=== PATIENT | female | born 1970 | race African-American/Black ===

== ENCOUNTER → 2019-01-03 | Outpatient (CLI) | payer OTHER ==
[~2019-01-03] MED LIST: BRINTELLIX20 MG PO; BUPROPION HCL150 M1 PO; CIPRO500 MG PO; HYDROCODONE-APA1 TA1 PO; LATUDA80 MG PO; LISINOPRIL-HCT1 EAC2 PO; OMEPRAZOLE 20 M20 M1 PO; VISTARIL 25 MG25 M1 PO
== END ==
LOC: MRI 10:41
DX: M50.11 Cervical disc disorder with radiculopathy, high cervical region (principal); M48.02 Spinal stenosis, cervical region

== ENCOUNTER 2019-11-12 10:34 | Inpatient (IN) | payer OTHER ==
[~2019-11-12] VITALS: Ht 162.6 cm; Wt 82.0 kg
[2019-11-12 10:34] VITALS: BP 186/97
[~2019-11-12 10:34] MED LIST changes: -HYDROCODONE-APA1 TA1 PO; +NORCO 5-325 TA1 EAC2 PO
[2019-11-12 10:54] LABS: URINE BILIRUBIN NEGATIVE (Negative); URINE BLOOD TRACE (Negative); URINE CLARITY CLEAR; URINE COLOR YELLOW; URINE GLUCOSE-RANDOM* NEGATIVE (Negative); URINE KETONES NEGATIVE (Negative); URINE LEUKOCYTES-REFLEX NEGATIVE (Negative); URINE NITRITE-REFLEX NEGATIVE (Negative); URINE PROTEIN (DIPSTICK) NEGATIVE (Negative); URINE UROBILINOGEN 0.2 E.U./dl (0.2-1.0)
[2019-11-12] MEDS ORDERED: LORATIDINE 10 M10 M1 PO (11:17)
[2019-11-12] MEDS ORDERED: ZANTAC 150MG T150 M1 PO (11:18)
[2019-11-12] MEDS ORDERED: SUPER THERAVIT1 EACH PO (11:18)
[2019-11-12 11:40] LABS: BE(vivo) 2.3 mmol/L (-2 to +3); HCO3 26.7 mmol/L (22.0-26.0); PCO2 VENOUS 40.8 mmHg (41.0-51.0); PO2 VENOUS 30.8 mmHg (35.0-45.0)
[2019-11-12 11:47] LABS: ABSOLUTE NEUTROPHILS 12.4 thou/uL (1.4-8.2); BASOPHILS 0.7 % (0.0-2.0); EOSINOPHILS 0.1 % (0.0-3.0); HEMATOCRIT 34.6 % (37.0-47.0); HEMOGLOBIN 11.3 gm/dL (12.0-15.0); MCH 31.7 pg (26.0-34.0); MCHC 32.7 g/dL (28.0-37.0); MCV 96.9 fL (80.0-100.0); PLATELET COUNT 266 thou/uL (150-400); POLYS 84.2 % (36.0-66.0); RBC 3.57 mil/uL (4.20-5.00); RDW 15.3 % (10.5-14.5); WBC 14.8 thou/uL (4.0-11.0)
[2019-11-12 11:49] LABS: ANION GAP 8 mmol/L (7-16); BUN 14 mg/dL (7-18); CALCIUM 10.1 mg/dL (8.5-10.1); CHLORIDE 106 mmol/L (98-107); CO2 29 mmol/L (21-32); CREATININE 0.9 mg/dL (0.6-1.0); GLUCOSE 108 mg/dL (74-106); POTASSIUM 3.4 mmol/L (3.5-5.1); SODIUM 143 mmol/L (136-145)
[2019-11-12 11:54] LABS: APTT 25.2 Seconds (24.5-32.8); PROTIME 10.2 Seconds (9.3-11.4)
[2019-11-12 11:58] LABS: ALBUMIN 3.6 g/dL (3.4-5.0); MAGNESIUM 1.8 mg/dL (1.8-2.4); SGOT 28 U/L (15-37); SGPT 24 U/L (30-65); TOTAL BILIRUBIN 0.5 mg/dL (<0.1-1.0); TROPONIN-I <0.06 ng/mL (<0.06)
[2019-11-12 13:43] VITALS: BP 158/65
[2019-11-12 14:05] VITALS: BP 148/65
[2019-11-12 14:33] VITALS: BP 144/78
[2019-11-12 17:51] LABS: ALBUMIN 3.4 g/dL (3.4-5.0); TOTAL PROTEIN 7.5 g/dL (6.4-8.2)
--- NOTE | 2019-11-12 18:25 | NUR ---
pt admitted from ER for SOB , PT has IV abx for abnormal chest x-ray, pt is continuing o2 1L/MIN/NC, and lasix 40mg iv , pt's vs are stable , pt has sob with acitivities, pt has pain medication for back pain about 1800pm, pt is relaxing now.
[2019-11-12 20:20] VITALS: BP 122/69
[2019-11-13 03:30] LABS: HEMATOCRIT 29.1 % (37.0-47.0); HEMOGLOBIN 9.6 gm/dL (12.0-15.0); MCH 31.8 pg (26.0-34.0); MCV 96.5 fL (80.0-100.0); RBC 3.02 mil/uL (4.20-5.00); WBC 7.5 thou/uL (4.0-11.0)
[2019-11-13 03:37] LABS: CALCIUM 9.1 mg/dL (8.5-10.1); CREATININE 0.9 mg/dL (0.6-1.0); MAGNESIUM 1.7 mg/dL (1.8-2.4)
[2019-11-13 04:32] LABS: TSH 1.959 uIU/mL (0.358-3.740)
[2019-11-13 05:15] VITALS: BP 163/90
[2019-11-13 08:05] VITALS: BP 156/95
--- NOTE | 2019-11-13 11:23 | EKG ---
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
[2019-11-13 15:43] VITALS: BP 114/67
--- NOTE | 2019-11-13 18:37 | NUR ---
pt is A&OX3, PT is off o2 today, pt's vs and o2sat are stable, pt has some sob with acitivites, pt has CTA today , no PE,but pt starts IV abx for L pneumonia, pt denies pain and n/v at this time.
[2019-11-13 19:42] VITALS: BP 116/82
[2019-11-14 03:59] VITALS: BP 139/89
--- NOTE | 2019-11-14 05:25 | NUR ---
AQUIRED CARE OF THIS PATIENT AT 191. PATIENT ALERT AND ORIENTED X4. UP WITH SBA TO BSC. IV PATENT IN RAC WITH FLUIDS INFUSING, PIV IN LAC WELL. DENIES PAIN. SLEPT OFF AND ON DURING SHIFT.
[2019-11-14 05:30] LABS: HEMATOCRIT 32.3 % (37.0-47.0); HEMOGLOBIN 10.6 gm/dL (12.0-15.0); MCH 31.6 pg (26.0-34.0); MCHC 32.8 g/dL (28.0-37.0); MCV 96.3 fL (80.0-100.0); RBC 3.35 mil/uL (4.20-5.00); RDW 14.9 % (10.5-14.5); WBC 6.7 thou/uL (4.0-11.0)
[2019-11-14 05:39] LABS: CALCIUM 9.6 mg/dL (8.5-10.1); CREATININE 0.9 mg/dL (0.6-1.0); MAGNESIUM 2.1 mg/dL (1.8-2.4); POTASSIUM 3.8 mmol/L (3.5-5.1)
[2019-11-14 07:20] VITALS: BP 141/86
--- NOTE | 2019-11-14 10:40 | 2DMMODE ---
[place] [address] [facility] [place] [address] 2 D/M-MODE ECHOCARDIOGRAM Name: SVITLANA AMAYA Room #: 360-P [facility] IN .R.#: [id number] Admission: 11/12/19 Attend Phys: Lane Mcgraw, Discharge: Date of : 66 Report #: [id number] THIS REPORT FOR: //name// APPROVED REPORT Study performed: 11/14/2019 09:56:08 EXAM: Comprehensive 2D, Doppler, and color-flow Echocardiogram Patient Location: Echo lab Room #: 360 Status: routine BSA: 1.83 HR: 76 bpm BP: 141/80 mmHg Other Information Study Quality: Good Indications CHF, elevated BNP, chest pressure, SOB. Hx: HTN, tobacco abuse. 2D Dimensions RVDd: 27.19 mm IVSd: 12.04 (7-11mm) LVOT Diam: 22.10 (18-24mm) LVDd: 50.96 mm PWd: 12.45 (7-11mm) Ascending Ao: 34.84 (22-36mm) LVDs: 42.54 (25-40mm) Aortic Root: 33.78 mm Volumes Left Atrial Volume (Systole) Single Plane 4CH: 79.65 mL Single Plane 2CH: 74.14 mL LA ESV Index: 46.00 mL/m2 Aortic Valve AoV Peak Miguelangel.: 1.27 m/s AO Peak Gr.: 6.40 mmHg LVOT Max P.43 mmHg LVOT Max V: 0.93 m/s JULIANA Vmax: 2.81 cm2 Mitral Valve E/A Ratio: 0.8 MV Decel. Time: 150.36 ms MV E Max Miguelangel.: 0.84 m/s MV A Miguelangel.: 0.99 m/s [facility] [place] [address] 2 D/M-MODE ECHOCARDIOGRAM Name: SVITLANA AMAYA Room #: [address] [place] [address] IN M.R.#: [id number] Admission: 11/12/19 Attend Phys: Lane Mcgraw, Discharge: Date of : 66 Report #: [id number] PHT: 43.60 ms IVRT: 89.97 ms Pulmonary Valve PV Peak Miguelangel.: 0.73 m/s PV Peak Gr.: 2.13 mmHg Pulmonary Vein P Vein S: 0.61 m/s P Vein A: 0.33 m/s P Vein D: 0.44 m/s P Vein A Dur.: 93.4 msec P Vein S/D Ratio: 1.39 Tricuspid Valve TR Peak Miguelangel.: 2.11 m/s RAP Estimate: 5.00 mmHg TR Peak Gr.: 18.00 mmHg PA Pressure: 23.00 mmHg Left Ventricle The left ventricle is normal size. Mild Global hypokinesis Mild concentric left ventricular hypertrophy. Left ventricular systolic function is mild to moderately decreased. LVEF is 40-45%. Mild diastolic dysfunction is present (impaired relaxation pattern). Right Ventricle The right ventricle is normal size. The right ventricular systolic function is normal. Atria Left atrium is moderately dilated. The right atrium size is normal. Aortic Valve The aortic valve is normal in structure. No aortic regurgitation is present. There is no aortic valvular stenosis. Mitral Valve The mitral valve is normal in structure. Severe mitral regurgitation. Tricuspid Valve The tricuspid valve is normal in structure. Trace tricuspid regurgitation. Estimated PAP is 20-25mmHg. Pulmonic Valve The pulmonary valve is normal in structure. There is no pulmonic valvular regurgitation. [facility] [address] [place] [address] 2 D/M-MODE ECHOCARDIOGRAM Name: SVITLANA AMAYA Room #: 360-P [facility] IN .R.#: [id number] Admission: 11/12/19 Attend Phys: Lane Mcgraw, Discharge: Date of : 66 Report #: [id number] Great Vessels The aortic root is normal in size. The ascending aorta is normal in size. IVC is normal in size and collapses >50% with inspiration. Pericardium There is no pericardial effusion. <Conclusion> The left ventricle is normal size. LVEF is 40-45%. Mild Global hypokinesis Left atrium is moderately dilated. The aortic valve is normal in structure. The mitral valve is normal in structure. Severe mitral regurgitation. The tricuspid valve is normal in structure. Trace tricuspid regurgitation. Estimated PAP is 20-25mmHg. The pulmonary valve is normal in structure. There is no pericardial effusion. <ELECTRONICALLY SIGNED> By: Juan Mendes MD 11/14/19 1039 1039 1039 Juan Mendes MD /INF
--- NOTE | 2019-11-14 11:32 | NUR ---
PT BACK FROM ECHO, DENIES ANY PAIN. Call light in reach. will continue to monitor.
[2019-11-14 15:27] VITALS: BP 115/68
[2019-11-14] MEDS ORDERED: ZANAFLEX4 M2 PO (16:21)
[2019-11-14] MEDS ORDERED: PRILOSEC OTC20 MG PO (16:21)
[2019-11-14] MEDS ORDERED: LEXAPRO20 MG PO (16:23)
--- NOTE | 2019-11-14 16:58 | NUR ---
INITIAL ASSESSMENT: Received high risk nursing referral. SW reviewed chart and spoke with nursing and attending physician. Pt was admitted from home due to hypoxia/CAP. Pt had echo today. Pt currently on IV lasix and IV abx. SW met with pt at bedside. Introduced role of SW. Pt is alert/orientated x 4. Pt reports she lives at home alone. Prior to admission, pt was independent with ADLS. Pt does have a cane and walker at home. Pt's PCP is Dr. Nuria Shook. Plan is for pt to discharge home when medically stable. SW is following to assist as needed with discharge planning.
[2019-11-14 19:30] VITALS: BP 115/59
[2019-11-15 04:05] VITALS: BP 130/64
[2019-11-15 05:12] LABS: CALCIUM 8.9 mg/dL (8.5-10.1); MAGNESIUM 1.9 mg/dL (1.8-2.4); POTASSIUM 3.6 mmol/L (3.5-5.1)
[2019-11-15 05:14] LABS: HEMATOCRIT 31.3 % (37.0-47.0); HEMOGLOBIN 10.4 gm/dL (12.0-15.0); MCH 31.9 pg (26.0-34.0); MCHC 33.4 g/dL (28.0-37.0); MCV 95.6 fL (80.0-100.0); RBC 3.27 mil/uL (4.20-5.00); RDW 14.6 % (10.5-14.5); WBC 6.3 thou/uL (4.0-11.0)
--- NOTE | 2019-11-15 07:49 | NUR ---
0725 pt transported to scientific laboratory supervisor via scientific laboratory supervisor nurse.
--- NOTE | 2019-11-15 09:34 | NUR ---
report given to akanksha on . P t will be in room 219. All pt belonging sent to [facility].
[2019-11-15 09:41] VITALS: BP 107/78
--- NOTE | 2019-11-15 10:38 | NUR ---
PT ARRIVED TO UNIT AT APPROX 0930 BY SET ILLUSTRATOR STAFF. PT ALERT AND ORIENTED. VSS. DENIES PAIN. RIGHT GROIN SITE CDI, NO HEMATOMA. PT MONITORED ON FREQUENT VITAL SIGNS. INSTRUCTED TO NOT MOVE RIGHT LEG, AND TO HOLD PRESSURE WHEN COUGHING, SNEEZING, LAUGHING. PT COMMUNICATES UNDERSTANDING. PT DENYING NEEDS AT THIS TIME. CONTINUING TO MONITOR.
--- NOTE | 2019-11-15 13:24 | CATHLAB ---
[facility] [address] [place] [address] INVASIVE PROCEDURE REPORT Name: SVITLANA AMAYA Room #: 219-P [facility] IN ..#: [id number] Admission: 11/12/19 Attend Phys: Lane Mcgraw, Discharge: Date of : 66 Report #: [id number] THIS REPORT FOR: //name// APPROVED REPORT Study performed: 11/15/2019 07:37:20 Patient Details Patient Status: In-Patient Room #: The patient is a 49 year-old female Event Personnel Gt Mcgowan Copy Messenger, Lois Dasilva RN RN, Marlon Moore RTJosé Luis Huston David Monitor Procedures Performed Left Heart Cath w/or w/o Coronaries [id number] [facility] Indication CHF Current Status: , Dyspnea, Cardiomyopathy, Chest pain Risk Factors HypercholesterolemiaPhysical Activity, Hypertension, Tobacco History () Procedure Narrative The Right Groin^ was infiltrated with 1% Lidocaine subcutaneous anesthesia. A sheath was inserted into the RFA^. Coronary angiography was performed using coronary diagnostic catheters. The patient tolerated the procedure well and there were no complications associated with the procedure. Intraoperative Conscious Sedation Fentanyl mcg Versed mg Fluoro Time: 1.47 minutes Dose: DAP 3070.00 cGycm2 Contrast Type and Amount: Omnipaque 100 ml Coronary Angiography The patient's coronary anatomy is co- dominant. Diagnostic Cath Left Main The Left main artery is a large-caliber vessel, patent with no flow-limiting lesions. [facility] [address] [place] [address] INVASIVE PROCEDURE REPORT Name: GORAN AMAYALANDA Room #: 219-P ADM IN M.R.#: [id number] Admission: 11/12/19 Attend Phys: Lane Mcgraw, Discharge: Date of : 66 Report #: [id number] LAD The LAD is a moderate size caliber vessel, traversing the anterior wall and terminating at the apex. This vessel is patent with no flow-limiting lesions. Diagonal 1 This is a small to moderate size caliber vessel, patent with no flow-limiting lesions. Circumflex The left circumflex artery is a moderate size caliber vessel, codominant. This vessel is patent with no flow-limiting lesions. OM1 This is a moderate size caliber vessel, with mild disease at the proximal segment, 20%. OM2 This is a small to moderate size caliber vessel, patent with no flow-limiting lesions. OM3 This is a small to moderate size caliber vessel, with a mild stenosis in the proximal segment. Right Coronary This is a moderate size caliber vessel, with mild disease in the proximal segment, 20%. R PDA This is a small to moderate size caliber vessel, patent with no flow-limiting lesions. Left Ventriculography The left ventricle is mildly dilated in size with decreased contractility. The left ventricular ejection fraction is estimated to be 35-40%. Hemodynamics The aortic pressure is 141/70 mmHg with a mean of 99 mmHg. The left ventricular pressure is 156/6 mmHg with a mean of mmHg. The left ventricular end diastolic pressure is 22 mmHg. There was no gradient across the aortic valve upon pullback. Pullback from the left ventricle to the aorta revealed no gradient across the aortic valve. Conclusion 1. There is mild, nonobstructive disease in the RCA and OM vessels. 2. Nonischemic cardiomyopathy. 3. Recommend aggressive risk factor management and guideline directed medical therapy. <ELECTRONICALLY SIGNED> By: Gt Mcgowan MD 11/15/19 1323 1323 1323 Gt Mcgowan MD /INF
[2019-11-15 17:00] VITALS: BP 111/65
--- NOTE | 2019-11-15 18:03 | NUR ---
PT CONTINUES TO BE ALERT AND ORIENTED. VSS. POST CATH VITALS SHEET IN CHART. RIGHT GROIN SITE REMAINS CDI NO HEMATOMA. PT OFF BEDREST, ABLE TO AMBULATE IN ROOM WITHOUT ISSUES. PT C/O PAIN IN BACK AND RIGHT LEG. MANAGED WITH IV PAIN MEDS. FAMILY MEMBER AT BEDSIDE. DENIES NEEDS AT THIS TIME. WILL CONT TO ASSESS PAIN/MONITOR AND FOLLOW POC
[2019-11-15 20:55] VITALS: BP 110/67
[2019-11-16] VITALS (7 sets, daily range): BP systolic 102–128; BP diastolic 61–78
--- NOTE | 2019-11-16 04:57 | NUR ---
PT ALERT AND ORIENTED. FAMILY PRESENT AT BEGINNING OF SHIFT. HAD A CARDIAC CATH YESTERDAY. R GROIN SITE C/D/I. VSS. NO C/O CHEST PAIN, SOB OR N/V/D. REPORTS BACK PAIN AND LE , MORPHINE 2MG GIVEN NEEDED. PT WOULD LIKE TO HAVE AN INHALER PRESCRIPTION UPON DISCHARGE. NO FURTHER CONCERNS AT THIS TIME. WILL CONTINUE TO FOLLOW POC.
[2019-11-16 05:57] LABS: HEMATOCRIT 31.2 % (37.0-47.0); HEMOGLOBIN 10.3 gm/dL (12.0-15.0); MCH 31.8 pg (26.0-34.0); MCHC 33.1 g/dL (28.0-37.0); RBC 3.25 mil/uL (4.20-5.00); RDW 14.4 % (10.5-14.5); WBC 5.6 thou/uL (4.0-11.0)
[2019-11-16 06:12] LABS: CALCIUM 8.8 mg/dL (8.5-10.1); CREATININE 1.1 mg/dL (0.6-1.0); MAGNESIUM 1.9 mg/dL (1.8-2.4); POTASSIUM 3.3 mmol/L (3.5-5.1)
--- NOTE | 2019-11-16 18:42 | NUR ---
ASSUMED CARE OF PT AT SHIFT CHANGE. ASSESSMENTS CHARTED. MEDS GIVEN PER MAR. VSS. PT A&OX4. C/O PAIN TREATED WITH PO MEDS WITH PARTIAL RELIEF. PLAN TO DISCHARGE TOMORROW IF STABLE ON ADJUSTED MEDS. WILL CONTINUE TO MONITOR AND FOLLOW POC.
[2019-11-17 04:23] VITALS: BP 119/59
--- NOTE | 2019-11-17 04:51 | NUR ---
PT SLEPT THROUGH THE NIGHT. STILL C/O BACK AND LE PAIN. VSS. MORPHINE X 1 GIVEN. DENIES CHEST PAIN. N/V/D. POSTOP DAY 2 AFTER CARDIAC CATH. DRESS CHNAGED. SITE C/D/I. NO BLEEDING. PT ANTICIPATE TO DC HOME WITH SOME SORT OF PAIN MEDICATIONS AND INHALER. NO FURTHER CONCERNS. WILL CONTINUE TO MONITOR.
[2019-11-17 05:28] LABS: HEMATOCRIT 33.8 % (37.0-47.0); HEMOGLOBIN 11.1 gm/dL (12.0-15.0); MCH 31.4 pg (26.0-34.0); MCHC 32.8 g/dL (28.0-37.0); MCV 95.8 fL (80.0-100.0); RBC 3.53 mil/uL (4.20-5.00); RDW 14.5 % (10.5-14.5); WBC 5.3 thou/uL (4.0-11.0)
[2019-11-17 05:53] LABS: CALCIUM 9.7 mg/dL (8.5-10.1); CREATININE 1.1 mg/dL (0.6-1.0)
[2019-11-17 06:11] LABS: POTASSIUM 4.3 mmol/L (3.5-5.1)
[2019-11-17 08:00] VITALS: BP 125/70
[2019-11-17] MEDS ORDERED: CARVEDILOL12.5 MG PO (10:33)
[2019-11-17] MEDS ORDERED: LISINOPRIL20 MG PO (10:34)
[2019-11-17] MEDS ORDERED: TORSEMIDE20 MG PO (10:34)
[2019-11-17] MEDS ORDERED: MUCINEX600 MG PO (10:35)
[2019-11-17] MEDS ORDERED: LEVAQUIN 750 M750 MG PO (10:35)
[2019-11-17] MEDS ORDERED: KLOR-CON 1010 MEQ PO (10:36)
[2019-11-17] MEDS ORDERED: PROAIR HFA8.5 GM INH (10:36)
[2019-11-17 10:42] VITALS: BP 125/70
--- NOTE | 2019-11-17 13:11 | NUR ---
ASSUMED CARE OF PT AT SHIFT CHANGE. ASSESSMENTS CHARTED. MEDS GIVEN PER DEC. VSS. C/O PAIN TREATED WITH IV MEDS WITH PARTIAL RELIEF. DISCHARGE ORDERS AND INSTRUCTIONS AND COMPLETE. PT LEFT WITH ALL BELONGINGS VIA VOLUNTEER WHEELCHAIR TO OWN CAR.
--- NOTE | 2019-11-17 17:32 | HC ---
[facility] [place] [address] CONSULTATION Name: SVITLANA AMAYA Room #: 219-P [facility] IN M.R.#: [id number] Admission: 11/12/19 Attend Phys: Lane Mcgraw MD Discharge: 11/17/19 Date of : 66 Report #: [id number] THIS REPORT FOR: //name// CC: HELDER Mcgraw Physician staff CARDIOLOGY CONSULTATION REASON FOR CONSULTATION: Congestive heart failure. HISTORY OF PRESENT ILLNESS: The patient is a 49-year-old female with a history of hypertension and tobacco abuse, who has been having increased exertional dyspnea for the past several days. She has also been noticing some PND and orthopnea at nighttime. She has also had some episodes of chest heaviness which radiates to her left shoulder blade, which can occur at rest or with activity. She denies any presyncope or syncope. REVIEW OF SYSTEMS: Twelve-point review of systems was performed and was negative other than what is already mentioned above. PAST MEDICAL HISTORY: 1. Hypertension. 2. Bipolar. SOCIAL HISTORY: She does smoke, used to use alcohol. ALLERGIES: None. MEDICATIONS: Have been reviewed. PHYSICAL EXAMINATION: VITAL SIGNS: Reviewed. GENERAL: In no acute distress. HEENT: Oropharynx clear. NECK: Supple. No thyromegaly. She has elevated JVD. HEART: Regular rate and rhythm with normal S1, S2. Positive S3. LUNGS: Some expiratory crackles noted. ABDOMEN: Soft, nontender, nondistended. No hepatosplenomegaly. EXTREMITIES: No clubbing, cyanosis or edema. NEUROLOGIC: Cranial nerves 2-12 are intact. LABORATORY DATA: White count 14, hemoglobin 11, platelets 266. INR 1. Chemistry; sodium 143, potassium 4.3, BUN 14, creatinine 0.9. Troponin is normal. Her proBNP is 9284. IMAGING: Chest x-ray shows enlarged cardiac silhouette and pulmonary edema. [facility] [address] [place] [address] CONSULTATION Name: SVITLANA AMAYA Room #: 219-P [facility] IN [facility].#: [id number] Admission: 11/12/19 Attend Phys: Lane Mcgraw MD Discharge: 11/17/19 Date of : 66 Report #: [id number] Her 12-lead EKG shows normal sinus rhythm with no ischemic changes. ASSESSMENT AND PLAN: Acute congestive heart failure, which may be diastolic versus systolic. We will obtain an echocardiogram tomorrow or Thursday. Depending on these findings, we will talk about stress testing versus cardiac catheterization. We will continue with IV diuretics. We will continue to optimize her medications and continue with lisinopril, and once she is diuresed we can add some beta blockers starting tomorrow. We will follow. <ELECTRONICALLY SIGNED> By: Facundo Ramirez MD 11/17/19 1732 1613 0149 MD bev Naranjo
== END 2019-11-17 12:29 | disposition home or self-care (01) | DRG 286 ==
LOC: ER 10:34 → EROBS 12:27 → 3W 12:27 → 2N 11-15 07:10 → ENTRNSPT 11-17 12:07 → EDTRNSPTSTS 11-17 12:10 → 2N 11-17 12:29
PROVIDERS: Emergency Medicine; Hospitalist; Nurse Practitioner Adult Health; ADMIT Internal Medicine
PROC: B2111ZZ Fluoroscopy of Multiple Coronary Arteries using Low Osmolar Contrast (ICD-10-PCS; principal; 2019-11-15)
PROC: 4A023N7 Measurement of Cardiac Sampling and Pressure, Left Heart, Percutaneous Approach (ICD-10-PCS; principal; 2019-11-15)
PROC: B2151ZZ Fluoroscopy of Left Heart using Low Osmolar Contrast (ICD-10-PCS; principal; 2019-11-15)
DX: I11.0 Hypertensive heart disease with heart failure (principal); J18.9 Pneumonia, unspecified organism; I50.23 Acute on chronic systolic (congestive) heart failure; I42.9 Cardiomyopathy, unspecified; R00.0 Tachycardia, unspecified; F31.9 Bipolar disorder, unspecified; E87.6 Hypokalemia; I34.0 Nonrheumatic mitral (valve) insufficiency; Z71.6 Tobacco abuse counseling; Z87.891 Personal history of nicotine dependence
CPT/HCPCS: 10081; 10879

== ENCOUNTER → 2019-12-12 | Outpatient (CLI) | payer OTHER ==
[~2019-12-12] MED LIST changes: +CARVEDILOL12.5 MG PO; +KLOR-CON 1010 MEQ PO; +LEVAQUIN 750 M750 MG PO; +LEXAPRO20 MG PO; +LISINOPRIL20 MG PO; +LORATIDINE 10 M10 M1 PO; +MUCINEX600 MG PO; +PRILOSEC OTC20 MG PO; +PROAIR HFA8.5 GM INH; +SUPER THERAVIT1 EACH PO; +TORSEMIDE20 MG PO; +ZANAFLEX4 M2 PO; +ZANTAC 150MG T150 M1 PO
== END ==
LOC: SJCVC 15:39
DX: I11.0 Hypertensive heart disease with heart failure (principal); I50.9 Heart failure, unspecified; I42.9 Cardiomyopathy, unspecified; I25.10 Atherosclerotic heart disease of native coronary artery without angina pectoris; Z72.0 Tobacco use; Z79.899 Other long term (current) drug therapy

== ENCOUNTER → 2020-02-29 | Outpatient (CLI) | payer OTHER | LOC: SJCVCIMAG 10:01 | DX: I08.1 Rheumatic disorders of both mitral and tricuspid valves (principal); R94.31 Abnormal electrocardiogram [ECG] [EKG]; I42.9 Cardiomyopathy, unspecified; I11.0 Hypertensive heart disease with heart failure; I50.9 Heart failure, unspecified; I25.10 Atherosclerotic heart disease of native coronary artery without angina pectoris; D64.9 Anemia, unspecified; Z79.899 Other long term (current) drug therapy ==

== ENCOUNTER 2021-01-24 13:51 | Inpatient (IN) | payer OTHER ==
[~2021-01-24] VITALS: Ht 160 cm; Wt 74.4 kg
[2021-01-24 13:52] VITALS: BP 156/105
[2021-01-24 14:28] LABS: BASOPHILS 0.8 % (0.0-2.0); EOSINOPHILS 0.5 % (0.0-3.0); HEMATOCRIT 35.9 % (37.0-47.0); HEMOGLOBIN 11.9 gm/dL (12.0-15.0); LYMPHOCYTES 36.9 % (24.0-44.0); MCH 31.6 pg (26.0-34.0); MCHC 33.3 g/dL (28.0-37.0); MCV 94.8 fL (80.0-100.0); MONOCYTES 6.8 % (1.0-8.0); RBC 3.78 mil/uL (4.20-5.00); RDW 14.5 % (10.5-14.5); WBC 5.5 thou/uL (4.0-11.0)
[2021-01-24 14:35] LABS: ANION GAP 12 mmol/L (7-16); BUN 13 mg/dL (7-18); CALCIUM 9.1 mg/dL (8.5-10.1); CHLORIDE 103 mmol/L (98-107); CO2 28 mmol/L (21-32); CREATININE 0.9 mg/dL (0.6-1.0); GLUCOSE 102 mg/dL (74-106); POTASSIUM 3.3 mmol/L (3.5-5.1); SODIUM 143 mmol/L (136-145)
[2021-01-24 14:40] LABS: BE(vivo) -1.6 mmol/L (-2 to +3); HCO3 21.1 mmol/L (22.0-26.0); PCO2 29.9 mmHg (35.0-45.0); PO2 59.4 mmHg (80.0-100.0); pH 7.467 (7.360-7.450); sO2 92.6 % (92.0-98.0)
[2021-01-24 14:45] LABS: SGOT 42 U/L (15-37); SGPT 24 U/L (14-59); TOTAL BILIRUBIN 0.7 mg/dL (0.2-1.0); TROPONIN-I <0.06 ng/mL (<0.06)
[2021-01-24 14:48] LABS: LARGE PLATELETS RARE; PLATELET COUNT 174 thou/uL (150-400)
--- NOTE | 2021-01-24 16:38 | NUR ---
AFTER GIVING THE PT HER MEDS, SHE STATED WE DID NOT HAVE THE PAIN MEDS SHE WANTED, AND THAT SHE IS GOING TO GO [facility]S.
--- NOTE | 2021-01-24 17:59 | NUR ---
PT ORIENTED TO ROOM AND UNIT, BED LOW AND LOCKED, SIDE RAILS UPX3, CALL LIGHT IN REACH, TELE APPLIED, PT IN ENHANCED PRECAUTION IN PUI. WILL CONTINUE TO ASSESS.
[2021-01-24 18:30] VITALS: BP 167/101
--- NOTE | 2021-01-24 18:49 | NUR ---
CONTACT DR. SANTAMARIA TO INFORM PT REQUESTING NARCOTICS. INSTRUCTED ONLY TO GIVE TYLENOL.
[2021-01-24 20:40] VITALS: BP 146/92
[2021-01-25 03:40] VITALS: BP 142/82
[2021-01-25 04:34] LABS: ANION GAP 10 mmol/L (7-16); BUN 15 mg/dL (7-18); CHLORIDE 106 mmol/L (98-107); CO2 27 mmol/L (21-32); GLUCOSE 90 mg/dL (74-106); POTASSIUM 3.6 mmol/L (3.5-5.1); SODIUM 143 mmol/L (136-145); TROPONIN-I <0.06 ng/mL (<0.06)
[2021-01-25 04:35] LABS: HEMATOCRIT 31.7 % (37.0-47.0); HEMOGLOBIN 10.5 gm/dL (12.0-15.0); MCH 31.9 pg (26.0-34.0); MCHC 33.3 g/dL (28.0-37.0); MCV 95.9 fL (80.0-100.0); RBC 3.31 mil/uL (4.20-5.00); RDW 14.5 % (10.5-14.5); WBC 6.4 thou/uL (4.0-11.0)
[2021-01-25 04:41] LABS: CHOLESTEROL 158 mg/dL (<200); HDL CHOLESTEROL 79 mg/dL (>40); LDL CHOLESTEROL 57 mg/dL (<100); SERUM ASSESSMENT Clear; TRIGLYCERIDE 112 mg/dL (<150); VLDL 22 mg/dL (<40)
--- NOTE | 2021-01-25 07:15 | EKG ---
[place] [address] [facility] 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 : 1970 Requested By: Marco Antonio Michele Order Number: [id number] MD: Keith Corrales Measurements Intervals [place] Rate: 105 P: 44 [place]: 140 QRS: 14 QRSD: 94 T: 37 QT: 371 QTc: 491 Interpretive Statements Sinus tachycardia Ventricular premature complex Left atrial enlargement Probable left ventricular hypertrophy Borderline prolonged QT interval Compared to ECG 11/12/2019 10:58:47 Ventricular premature complex(es) now present Atrial abnormality now present Electronically Signed On 01-25-2021 7:15:08 CDT by Keith Corrales [email or web address] <ELECTRONICALLY SIGNED> By: Keith Corrales MD, [facility] 01/25/21 0715 1408 1408 Keith Corrales MD, [facility] /EPI
--- NOTE | 2021-01-25 07:42 | NUR ---
PT ASKED AND WAS GIVEN TYLENOL LAST NIGHT FOR GENERALIZED AND BACK PAIN. SHE STATED SHE NORMALLY GOES TO THE [facility]. DAY RN STATED THAT THE PHYSICIAN WOULD NOT PRESCRIBE ANY NARCOTIC PAIN MEDICATION AND THAT SHE COULD ONLY HAVE TYLENOL. PT INSTRUCTED TO SPEAK WITH PHYSICIAN IN REGARDS TO ANY EXPLANATION TO SUCH AN ORDER.
[2021-01-25 08:03] VITALS: BP 144/84
--- NOTE | 2021-01-25 12:17 | 2DMMODE ---
[facility] [place] [address] 2 D/M-MODE ECHOCARDIOGRAM Name: SVITLANA AMAYA Room #: 356-P ADM IN M.R.#: [id number] Admission: 01/24/21 Attend Phys: Dilan Reyna MD Discharge: Date of : 66 Report #: [id number] THIS REPORT FOR: cc: FAM - Family physician unknown FAM - Family physician unknown Gt Mcgowan MD ~ APPROVED REPORT Study performed: 01/25/2021 11:10:55 EXAM: Comprehensive 2D, Doppler, and color-flow Echocardiogram Patient Location: Bedside Room #: 356 Status: routine BSA: 1.77 HR: 73 bpm BP: 142/82 mmHg Rhythm: NSR Other Information Study Quality: Good Indications Short of breath, CHF. Hx: Mild CAD, cardiomyopathy, tobacco abuse. 2D Dimensions RVDd: 36.66 mm IVSd: 13.22 (7-11mm) LVOT Diam: 21.11 (18-24mm) LVDd: 49.92 mm PWd: 13.23 (7-11mm) LVDs: 43.09 (25-40mm) Aortic Root: 32.08 mm Volumes Left Atrial Volume (Systole) Single Plane 4CH: 74.17 mL Single Plane 2CH: 98.71 mL LA ESV Index: 51.00 mL/m2 Aortic Valve AoV Peak Miguelangel.: 1.46 m/s AO Peak Gr.: 8.58 mmHg LVOT Max P.32 mmHg LVOT Max V: 0.76 m/s JULIANA Vmax: 1.82 cm2 [facility] [address] [address] 2 D/M-MODE ECHOCARDIOGRAM Name: SVITLANA AMAYA Room #: 356-P [facility] IN M.R.#: [id number] Admission: 01/24/21 Attend Phys: Dilan Reyna MD Discharge: Date of : 66 Report #: [id number] Mitral Valve E/A Ratio: 1.6 MV Decel. Time: 182.92 ms MV E Max Miguelangel.: 1.20 m/s MV A Miguelangel.: 0.74 m/s MV PHT: 53.05 ms IVRT: 64.59 ms Pulmonary Valve PV Peak Miguelangel.: 0.89 m/s PV Peak Gr.: 3.16 mmHg Pulmonary Vein P Vein S: 0.37 m/s P Vein A: 0.24 m/s P Vein D: 0.34 m/s P Vein A Dur.: 120.0 msec P Vein S/D Ratio: 1.09 Tricuspid Valve RAP Estimate: 5.00 mmHg Left Ventricle The left ventricle is normal size. Mild concentric left ventricular hypertrophy. Left ventricular systolic function is mildly decreased. LVEF is 45%. Moderate diastolic dysfunction is present. Right Ventricle The right ventricle is normal size. The right ventricular systolic function is normal. Atria Left atrium is severely dilated. The right atrium size is normal. Aortic Valve The aortic valve is normal in structure. No aortic regurgitation is present. There is no aortic valvular stenosis. Mitral Valve The mitral valve is normal in structure. Moderate mitral annular calcification. Moderate to severe mitral regurgitation No evidence of mitral valve stenosis. Tricuspid Valve The tricuspid valve is normal in structure. There is no tricuspid valve regurgitation noted. Unable to assess PA pressure. [facility] [place] [address] 2 D/M-MODE ECHOCARDIOGRAM Name: SVITLANA AMAYA Room #: 356-[facility] IN .R.#: [id number] Admission: 01/24/21 Attend Phys: Dilan Reyna MD Discharge: Date of : 66 Report #: [id number] Pulmonic Valve The pulmonary valve is normal in structure. Trace pulmonic regurgitation. Great Vessels The aortic root is normal in size. Ascending aorta is not well visualized. IVC is normal in size and collapses >50% with inspiration. Pericardium There is no pericardial effusion. <Conclusion> The left ventricle is normal size. Mild concentric left ventricular hypertrophy. Left ventricular systolic function is mildly decreased. LVEF is 45%. Moderate diastolic dysfunction is present. The right ventricle is normal size. Left atrium is severely dilated. The aortic valve is normal in structure. Moderate mitral annular calcification. Moderate to severe mitral regurgitation <ELECTRONICALLY SIGNED> By: Gt Mcgowan MD 01/25/211215 15 15 Gt Mcgowan MD /INF
--- NOTE | 2021-01-25 13:46 | NUR ---
INITIAL ASSESSMENT: Received consult. SW reviewed chart and spoke with nursing and attending physician. Pt was admitted from home due to CHF/dyspnea. Pt placed in Enhanced Isolation to r/o COVID. Pt's test on 01/24 was negative. Isolation precautions discontinued. Pt is on IV abx and IV lasix. SW met with pt at bedside. Introduced role of SW. Pt is alert/orientated x 4. Pt reports she lives at home. Her dtr lives with her. Pt has a cane and walker to use if needed. No hx of services or post-acute placement. Pt's PCP is Dr. Mejia Lopez at [facility]. Pt is currently on O2 and was not on O2 prior to admission. If pt is not able to be weaned off O2, then she will need a rest/exercise oximetry to determine home O2 needs. Nursing to contact RT to assist with home O2 if needed over the weekend. Plan is for pt to discharge home when medically stable. SW is following to assist as needed with discharge planning.
[2021-01-25 16:23] VITALS: BP 120/60
[2021-01-25 20:09] VITALS: BP 130/71
[2021-01-26 04:18] VITALS: BP 125/65
[2021-01-26 05:25] LABS: CALCIUM 9.1 mg/dL (8.5-10.1)
[2021-01-26 07:41] VITALS: BP 110/61
--- NOTE | 2021-01-26 09:22 | NUR ---
PT MAKING SLOW PROGRESS TOWARDS GOALS. C/O GENERALIZED PAIN 04/11. X2 DOSES OF LORTAB GIVEN PER ORDERS. PT REPORTING "I THINK THE PAIN IS GETTING BETTER TODAY."
[2021-01-26 10:45] LABS: MAGNESIUM 1.7 mg/dL (1.8-2.4); PHOSPHORUS 4.5 mg/dL (2.5-4.9)
[2021-01-26 11:23] LABS: FOLIC ACID 7.8 ng/mL (8.6-58.9)
[2021-01-26 13:48] LABS: HEMATOCRIT 29.8 % (37.0-47.0); HEMOGLOBIN 9.6 gm/dL (12.0-15.0); MCH 31.7 pg (26.0-34.0); MCHC 32.3 g/dL (28.0-37.0); MCV 98.1 fL (80.0-100.0); RBC 3.04 mil/uL (4.20-5.00); RDW 14.8 % (10.5-14.5); WBC 4.4 thou/uL (4.0-11.0)
[2021-01-26 16:00] VITALS: BP 121/72
[2021-01-26 16:21] LABS: CALCIUM 9.4 mg/dL (8.5-10.1); CREATININE 1.1 mg/dL (0.6-1.0); MAGNESIUM 2.5 mg/dL (1.8-2.4)
[2021-01-26 16:22] LABS: POTASSIUM 4.1 mmol/L (3.5-5.1)
[2021-01-26 17:32] LABS: % SATURATION 14 % (20-39); IRON 41 ug/dL (50-170); TIBC 298 ug/dL (250-450)
[2021-01-26 17:33] LABS: ABSOLUTE RETIC COUNT 0.0476 10^6/uL; OBSERVED RETIC COUNT 1.55 % (0.6-2.6)
--- NOTE | 2021-01-26 19:46 | NUR ---
RN ASSUMED PT'S CARE AT 0700AM, PT IS A&OX3, PT IS OFF O2 TODAY, BUT PT STILL HAS COUGHING , PT'S VS ARE STBALE AT DAY SHIFT.
[2021-01-26 20:17] VITALS: BP 107/56
[2021-01-27 03:53] LABS: CALCIUM 9.5 mg/dL (8.5-10.1); CREATININE 1.1 mg/dL (0.6-1.0); MAGNESIUM 2.3 mg/dL (1.8-2.4); PHOSPHORUS 4.4 mg/dL (2.5-4.9); POTASSIUM 3.9 mmol/L (3.5-5.1)
[2021-01-27 04:28] LABS: ABSOLUTE NEUTROPHILS 2.3 thou/uL (1.4-8.2); BASOPHILS 1.2 % (0.0-2.0); HEMATOCRIT 32.9 % (37.0-47.0); HEMOGLOBIN 10.8 gm/dL (12.0-15.0); LYMPHOCYTES 35.4 % (24.0-44.0); MCH 31.6 pg (26.0-34.0); MCV 95.8 fL (80.0-100.0); MONOCYTES 10.2 % (1.0-8.0); PLATELET COUNT 172 thou/uL (150-400); POLYS 52.2 % (36.0-66.0); RBC 3.43 mil/uL (4.20-5.00); RDW 14.6 % (10.5-14.5); WBC 4.4 thou/uL (4.0-11.0)
[2021-01-27 04:41] VITALS: BP 124/71
--- NOTE | 2021-01-27 04:47 | NUR ---
Pt. stated she slept better last night. Medicated for pain with some relief. Up ad ruben in room with steady gait. Voiding per bathroonm. Stool sent for OB with pending results. Tolerating room air well with O2 sat up to 100%. Making progress towards care plan goals.
[2021-01-27 07:35] VITALS: BP 128/71
[2021-01-27] MEDS ORDERED: LISINOPRIL20 MG PO (13:13)
[2021-01-27] MEDS ORDERED: ASA81BEC PO (13:14)
[2021-01-27] MEDS ORDERED: TORSEMIDE20 MG PO (13:16)
[2021-01-27] MEDS ORDERED: MUCINEX600 MG PO (13:17)
[2021-01-27] MEDS ORDERED: B12INJ IM (13:17)
[2021-01-27] MEDS ORDERED: FOLIC ACID1 MG PO (13:18)
[2021-01-27 13:53] VITALS: BP 128/71
--- NOTE | 2021-01-27 16:06 | NUR ---
RN ASSUMED PT'S CARE AT 0700AM, PT IS A&OX3, PT IS ON ROOM , PT'S VS ARE STABLE, PT'S SOB AND PAIN HAVE IMPROVED, RN RECEIVED ORDER TO DC PT TO HOME, RN HAS GIVING DC TEACHING , PT UNDERSTANDED WELL, PT WAS GOING HOME ABOUT 1420PM.
== END 2021-01-27 14:59 | disposition home or self-care (01) | DRG 291 ==
LOC: ER 13:51 → EROBS 15:28 → 3W 15:28
PROVIDERS: Emergency Medicine; Internal Medicine; Nurse Practitioner; ADMIT Hospitalist; ATTEND Hospitalist
DX: I11.0 Hypertensive heart disease with heart failure (principal); J96.01 Acute respiratory failure with hypoxia; I50.43 Acute on chronic combined systolic (congestive) and diastolic (congestive) heart failure; I42.9 Cardiomyopathy, unspecified; E53.8 Deficiency of other specified B group vitamins; I34.0 Nonrheumatic mitral (valve) insufficiency; Z20.822 Contact with and (suspected) exposure to COVID-19; F17.210 Nicotine dependence, cigarettes, uncomplicated; E87.6 Hypokalemia; D64.9 Anemia, unspecified; E83.42 Hypomagnesemia; I25.10 Atherosclerotic heart disease of native coronary artery without angina pectoris; Z79.82 Long term (current) use of aspirin
CPT/HCPCS: 10879

== ENCOUNTER → 2021-02-06 | Outpatient (CLI) | payer OTHER ==
[~2021-02-06] MED LIST changes: +ASA81BEC PO; +B12INJ IM; +FOLIC ACID1 MG PO
== END ==
LOC: SJCVC 15:03
PROVIDERS: ATTEND Internal Medicine Cardiovascular Disease
DX: R94.31 Abnormal electrocardiogram [ECG] [EKG] (principal); I42.9 Cardiomyopathy, unspecified; I11.0 Hypertensive heart disease with heart failure; I50.9 Heart failure, unspecified; I25.10 Atherosclerotic heart disease of native coronary artery without angina pectoris; R07.9 Chest pain, unspecified; I34.0 Nonrheumatic mitral (valve) insufficiency; Z72.0 Tobacco use; Z79.899 Other long term (current) drug therapy

== ENCOUNTER → 2021-02-19 | Outpatient (CLI) | payer OTHER | LOC: SJCVCIMAG 02-18 08:16 | PROVIDERS: ATTEND Internal Medicine Cardiovascular Disease | DX: I49.3 Ventricular premature depolarization (principal); R07.9 Chest pain, unspecified; R51.9 Headache, unspecified; I42.9 Cardiomyopathy, unspecified; I13.0 Hypertensive heart and chronic kidney disease with heart failure and stage 1 through stage 4 chronic kidney disease, or unspecified chronic kidney disease; I50.9 Heart failure, unspecified; N18.9 Chronic kidney disease, unspecified; I34.0 Nonrheumatic mitral (valve) insufficiency; I25.10 Atherosclerotic heart disease of native coronary artery without angina pectoris; F17.200 Nicotine dependence, unspecified, uncomplicated; Z79.899 Other long term (current) drug therapy ==